=== PATIENT | female | born 1950 | race Caucasian/White ===

== ENCOUNTER → 2019-04-26 18:45 | Outpatient (CLI) | payer MEDICARE, BC | END | disposition home or self-care (01) | LOC: D.MAMMO 03-16 10:45 | PROVIDERS: ATTEND Family Medicine | DX: R92.8 Other abnormal and inconclusive findings on diagnostic imaging of breast (principal) ==

== ENCOUNTER 2020-05-13 08:59 | Outpatient (CLI) | payer OTHER | END 2020-05-13 23:59 | disposition home or self-care (01) | LOC: D.MAMMO 08:59 | PROVIDERS: ATTEND Student in an Organized Health Care Education/Training Program | DX: R92.8 Other abnormal and inconclusive findings on diagnostic imaging of breast (principal) ==